=== PATIENT | male | born 1960 | race African-American/Black ===

== ENCOUNTER 2020-01-11 17:45 | Inpatient (IN) | payer MEDICARE, OTHER ==
[~2020-01-11 17:45] MED LIST: Iopamidol-370 76% 500 ML 1 ML ONE
[2020-01-11 18:43] LABS: #Eosinphils 0.4 thou/uL (0.0-0.7); #Lymphocytes 0.9 thou/uL (1.20-3.40); #Monocytes 0.6 thou/uL (0.11-0.59); #Neutrophils 8.3 thou/uL (1.40-6.50); %Basophils 0.1 % (0.0-1.0); %Eosinophils 4.3 % (0.0-10.0); %Lymphocytes 8.9 % (21.0-51.0); %Neutrophils 80.6 % (42.0-75.0); Hemoglobin 6.8 g/dL (14.0-18.0); Mean Corpuscular HGB CONC 33.4 g/dL (32.0-36.0); Mean Corpuscular Hemoglobin 31.6 pg (27.0-31.0); Mean Corpuscular Volume 94.4 fL (78.0-98.0); Mean Platelet Volume 6.9 fL (7.4-10.4); Platelet Count 372 thou/uL (130-400); RBC Distribution Width 14.3 % (11.5-14.5); Red Blood Cell (RBC) Count 2.16 mill/uL (4.70-6.10); White Blood Cell (WBC) Count 10.3 thou/uL (4.8-10.8)
[2020-01-11 19:02] LABS: ALT (SGPT) 26 U/L (8-55); AST (SGOT) 21 U/L (5-34); Albumin 3.2 g/dL (3.4-4.8); Alkaline Phosphatase 63 U/L (40-110); Anion Gap 20 mmol/L (10-20); BUN (Urea Nitrogen) 85 mg/dL (8.4-25.7); Bilirubin, Total 0.3 mg/dL (0.2-1.2); CK (CPK) 152 U/L (30-200); Calc. Creatinine Clearance 0 mL/min (70-130); Calcium 9.1 mg/dL (7.8-10.44); Carbon Dioxide 16 mmol/L (23-31); Chloride 106 mmol/L (98-107); Estimated GFR-MDRD 5; Globulin 2.9 g/dL (2.4-3.5); Glucose 72 mg/dL (80-115); Potassium 5.4 mmol/L (3.5-5.1); Protein, Total 6.1 g/dL (5.8-8.1); Sodium 137 mmol/L (136-145)
[2020-01-11 19:31] LABS: Bacteria/HPF None Seen HPF (None Seen); Bilirubin Negative (Negative); Blood, Urine Trace (Negative); Clarity Clear (Clear); Glucose, Urine (Dipstick) Normal (Negative); Ketone, Urine Negative (Negative); Leukocyte Negative Leu/uL (Negative); Nitrite Negative (Negative); Protein, Urine (Dipstick) 30 mg/dL (Neg-Trace); RBC/HPF None Seen HPF (0-3); Squamous Epithelial None Seen HPF (0-3); Urobilinogen Normal mg/dL (Less than 2); WBC/HPF 0-3 HPF (0-3); pH, Urine 6.5 (5.0-9.0)
--- NOTE | 2020-01-11 19:48 | CT ---
EXAM: CT ABDOMEN AND PELVIS HISTORY: Abdominal pain COMPARISON: 04/14/2019, 09/15/2018 Procedure: Multiple contiguous axial images were obtained and a CT of the abdomen and pelvis with IV contrast. C oronal reformats were performed. FINDINGS: Lower Chest: Chronic changes of the lung parenchyma Vessels: Atherosclerosis of the aorta is noted. There is an endovascular stent for abdominal aortic a neurysm and bilateral common iliac artery repair. The possibility of a leak cannot be excluded given the lack of a noncontrast sequence. There does appear to be a subtle blush of contrast in the e xcluded lumen suggesting a possible type II endoleak. Linear density is noted on axial images 3 through 55, series 2. The maximum dimension of the infrarenal abdominal aorta is 3.4 x 3.3 cm. Previo usly, the aorta measured 3.2 x 3.2 cm. No significant periaortic fat stranding. Heart: Coronary calcifications. No cardiomegaly. Abdomen: Portal vein:Patent Gallbladder: No calcified gallstones. Normal caliber wall. Liver: within normal limits. Pancreas: within normal limits. Spleen: within normal limits. Adrenals: within normal limits. Kidneys: Stable subcentimeter hypodensities in the left and right renal cortex. Bilaterally no obstru ctive uropathy. Peritoneum: There are small pockets of free air within the upper abdomen. There is perihepatic and pe risplenic region. There is a dialysis catheter terminating in the lower midline pelvis. Bowel: Limited evaluation due to the lack of oral contrast administration. No evidence of bowel obstr uction. Ileocecal junction is unremarkable. Normal caliber appendix. Scattered fecal material in a nondistended, nondilated colon. Mesentery and Retroperitoneum: No enlarged mesenteric or retroperitoneal lymph nodes. Abdominal Wall: within normal limits. Pelvis: Reproductive Organs: Reproductive organs are unremarkable. Pelvis: Small amount of free fluid in the pelvis. No mass, lymphadenopathy or free air. Bladder: within normal limits. Bones: within normal limits. IMPRESSION: 1. Redemonstration of a endovascular stent infrarenal abdominal aorta with limbs extending into the l eft and right common iliac artery. Evaluation for endoleak is limited by the lack of noncontrast images. There may be a type II endoleak present. Nonemergent cardiovascular surgical consultation is recommended. 2. Perihepatic, perisplenic fluid as well as small pockets of air in the peritoneum are presumed to b e iatrogenic and due to peritoneal dialysis. No obvious alimentary canal mucosal abnormality. No evidence of bowel obstruction. Normal caliber appendix. Transcribed Date/Time: 01/11/2020 7:57 PM
[2020-01-11] MEDS ORDERED: Ondansetron PF 4 MG/2 ML Vial IVP PRN (22:25)
[2020-01-11] MEDS ORDERED: Ondansetron ODT 4 MG TAB SL PRN (22:25)
[2020-01-11 22:36] VITALS: BMI 27.1
[2020-01-12] MEDS ORDERED: hydrALAZINE 20 MG/ML VIAL SLOW IVP PRN (00:24)
[2020-01-12] MEDS ORDERED: Dextrose 5% in Water 1,000 ML IV PRN (00:24)
[2020-01-12] MEDS ORDERED: Ondansetron ODT 4 MG TAB PO PRN (00:24)
[2020-01-12] MEDS ORDERED: Acetaminophen 500 MG TAB PO PRN (00:24)
[2020-01-12] MEDS ORDERED: PROVENTIL INHALER 6.7 G (200 INHALATIONS) INH PRN (00:24)
[2020-01-12] MEDS ORDERED: Labetalol HCl 100 MG/20 ML VIAL SLOW IVP PRN (00:24)
[2020-01-12] MEDS ORDERED: HumaLOG 300 UNITS/3 ML VIAL SC PRN ×2 (00:24)
[2020-01-12] MEDS ORDERED: Ondansetron PF 4 MG/2 ML Vial IVP PRN (00:24)
[2020-01-12] MEDS ORDERED: Loperamide HCl 2 MG CAP PO PRN ×2 (00:24)
[2020-01-12] MEDS ORDERED: Metoprolol Tartrate 25 MG TAB PO SCH (00:45)
--- NOTE | 2020-01-12 03:13 | HP ---
PRIMARY CARE PROVIDER: [facility], [place], [place]. PRIMARY SOLE SKIVER: Dr. Harvinder Ayala. CHIEF COMPLAINT: Abdominal pain with diarrhea. HISTORY OF PRESENT ILLNESS: This is a 59-year-old male with a significant history of end-stage renal disease on peritoneal dialysis, complaining of lower abdominal pain over the last 4 days with associated loose stool up to 2-3 times per day. The patient denied any fever, chills, emesis or blood in the stool. The patient states he was unable to complete peritoneal dialysis in the last 24 hours due to a malfunctioning peritoneal dialysis catheter. The patient apparently was going to attempt dialysis at his dialysis center, however, was unsuccessful in getting this coordinated. The patient apparently was evaluated at the dialysis center, but referred to the emergency room after concern for potential infection or worsening abdominal distention. The patient does associate with the lower abdominal pain, dysuria, frequency, and hesitancy. In the emergency room, the patient underwent general evaluation including urinalysis, which was essentially unremarkable. The patient underwent CT imaging of the abdomen and pelvis showing no acute intraabdominal process. The patient's potassium was 5.4, however, hemoglobin was noted at 6.8. The patient with a history of previous duodenitis and GI bleed requiring 1 unit of packed red blood cells and Protonix in October of 2019. The patient underwent the EGD evaluation confirming the duodenitis. In the emergency room, the patient was typed and crossed for 2 units of packed red blood cells with 1 unit currently infusing. PAST MEDICAL HISTORY: 1. GI bleed secondarily to duodenitis. 2. End-stage renal disease with peritoneal dialysis. 3. Atrial fibrillation without anticoagulation. 4. Diabetes mellitus type 2. 5. Hyperlipidemia. 6. Hypertension. 7. Gout. 8. Abdominal aortic aneurysm status post repair. PAST SURGICAL HISTORY: 1. Status post cardiac pacemaker placement. 2. Status post abdominal aortic aneurysm with graft and repair. 3. Status post peritoneal dialysis catheter placement. 4. Status post EGD due to gastrointestinal bleed, positive for duodenitis. CURRENT MEDICATIONS: 1. Allopurinol 150 mg p.o. daily. 2. Calcitriol 1 mcg p.o. daily. 3. Cinacalcet 90 mg p.o. daily. 4. Fosrenol 1000 mg p.o. daily. 5. Metoprolol tartrate 25 mg p.o. b.i.d. 6. Renvela 3200 mg p.o. t.i.d. with meals. 7. Procrit 42692 units subcutaneously q.7 days. 8. Folic acid 1 mg p.o. daily. 9. Glipizide 2.5 mg p.o. b.i.d. 10. Protonix 40 mg p.o. b.i.d. ALLERGIES: LISINOPRIL. FAMILY HISTORY: Positive for hypertension and diabetes mellitus. SOCIAL HISTORY: and resides in [place], [place]. Disabled. Former drug user including cocaine and marijuana. None currently. Smokes up to half a pack of cigarettes daily. No alcohol use. REVIEW OF SYSTEMS: CONSTITUTIONAL: Negative for weight loss or gain, ability to conduct usual activities. SKIN: Negative for rash, itching. EYES: Negative for double vision, pain. ENT/MOUTH: Negative for nose bleeding, neck stiffness, pain, tenderness. CARDIOVASCULAR: Negative for palpitations, dyspnea on exertion, orthopnea. RESPIRATORY: Negative for shortness of breath, wheezing, cough, hemoptysis, fever or night sweats. GASTROINTESTINAL: Negative for poor appetite, abdominal pain, heartburn, nausea, vomiting, constipation, or diarrhea. GENITOURINARY: Negative for urgency, frequency, dysuria, nocturia. MUSCULOSKELETAL: Negative for pain, swelling. NEUROLOGIC/PSYCHIATRIC: Negative for anxiety, depression. ALLERGY/IMMUNOLOGIC: Negative for skin rash, bleeding tendency. Otherwise negative except as stated per HPI. PHYSICAL EXAMINATION: VITAL SIGNS: On admission, blood pressure 133/78, pulse 111, respiratory rate 20, temperature 98.9 degrees, Fahrenheit O2 saturation 100% on room air. GENERAL APPEARANCE: This is a 59-year-old male, alert and oriented x3, pleasant, responsive, in no acute distress. HEENT: Pupils are equal, round, reactive to light and accommodation. Extraocular muscles are intact. No scleral icterus. No conjunctival injection. Nares patent, OP is clear. Teeth in good repair. NECK: Supple. No cervical adenopathy. No thyromegaly. No carotid bruits. No JVD appreciated. Cervical spine with full active and passive range of motion. No meningeal signs noted. CHEST: Lungs are clear to auscultation bilaterally. CARDIOVASCULAR EXAM: S1, S2 with tachycardia. No murmur, rub, or gallop appreciated. ABDOMEN: Rounded, soft, nontender, nondistended. Bowel sounds are positive in all 4 quadrants. Peritoneal dialysis catheter in place. EXTREMITIES: Warm and dry with fair turgor. No clubbing, cyanosis, or asymmetric edema appreciated. Pulses palpable distally at the dorsalis pedis, posterior tibial, and popliteal arteries bilaterally. Capillary refill less than 2 seconds. NEUROLOGIC: Cranial nerves 2 through 12 are grossly intact. No focal or lateralizing signs appreciated. PERTINENT LAB AND X-RAY FINDINGS: Sodium 137, potassium 5.4, chloride 106, CO2 of 16, BUN 85, creatinine 11.44, estimated GFR 5, glucose 72, lactic acid level 0.8, calcium 9.1. CBC showed a white blood cell count of 10.3, hemoglobin 6.8, hematocrit 20.4, platelet count 372 with 81% neutrophils. Urinalysis positive for protein and trace blood. CT of the abdomen and pelvis dated 01/11/2020, showed no acute intraabdominal process. Chronic changes noted including endovascular stent in the infrarenal abdominal aorta. Changes consistent with peritoneal dialysis catheter. EKG dated 01/11/2020, by my interpretation shows sinus tachycardia with heart rates in the low 100 to 110s. Normal R-wave progression noted in the precordial leads. Normal axis. No acute ST-T wave changes appreciated. ASSESSMENT/PLAN: 1. Peritoneal dialysis catheter dysfunction. The patient will be observed on the telemetry unit. We will consult Nephrology Service in the a.m. for any further recommendations and consideration for surgical evaluation. 2. [id number] anemia secondary to end-stage renal disease. Type and cross for 2 units of packed red blood cells and transfuse when available. Serial H and H monitoring. Check stool guaiac x1. 3. History of prior duodenitis. 4. End-stage renal disease on peritoneal dialysis. Malfunctioning peritoneal dialysis catheter as stated previously. Consult Nephrology Service for evaluation. 5. Hyperkalemia. Mild elevation in potassium level. Serial potassium monitoring. Likely will benefit from dialysis. 6. Hypertension. Resume home blood pressure regimen and monitor serial blood pressures and monitor clinical response. 7. Prophylaxis. Sequential compression devices while in bed. Protonix 40 mg p.o. daily. CODE STATUS: Full. Surrogate medical decision maker is the patient's spouse. Job ID: [id number]
[2020-01-12] MEDS ORDERED: glipiZIDE 5 MG TAB PO SCH (08:00)
[2020-01-12 08:37] LABS: #Eosinphils 0.5 thou/uL (0.0-0.7); #Lymphocytes 0.9 thou/uL (1.20-3.40); #Monocytes 0.6 thou/uL (0.11-0.59); #Neutrophils 9.4 thou/uL (1.40-6.50); %Basophils 0.2 % (0.0-1.0); %Eosinophils 4.2 % (0.0-10.0); %Monocytes 5.6 % (0.0-10.0); Hemoglobin 8.6 g/dL (14.0-18.0); Mean Corpuscular HGB CONC 34.1 g/dL (32.0-36.0); Mean Corpuscular Hemoglobin 31.9 pg (27.0-31.0); Mean Corpuscular Volume 93.4 fL (78.0-98.0); Mean Platelet Volume 6.7 fL (7.4-10.4); Platelet Count 314 thou/uL (130-400); RBC Distribution Width 14.2 % (11.5-14.5); Red Blood Cell (RBC) Count 2.68 mill/uL (4.70-6.10); White Blood Cell (WBC) Count 11.4 thou/uL (4.8-10.8)
[2020-01-12 08:57] LABS: Anion Gap 21 mmol/L (10-20); BUN (Urea Nitrogen) 88 mg/dL (8.4-25.7); Calc. Creatinine Clearance 9 mL/min (70-130); Calcium 9.2 mg/dL (7.8-10.44); Carbon Dioxide 14 mmol/L (23-31); Chloride 107 mmol/L (98-107); Estimated GFR-MDRD 6; Glucose 97 mg/dL (80-115); Potassium 6.1 mmol/L (3.5-5.1); Sodium 136 mmol/L (136-145)
[2020-01-12] MEDS: Cholecalciferol 1,000 UNITS (25 MCG) TAB PO SCH (08:57)
[2020-01-12] MEDS: Allopurinol 300 MG TAB PO SCH (08:57)
[2020-01-12] MEDS: Sevelamer Carbonate 800 MG TAB PO SCH ×4 (08:57→20:09)
[2020-01-12] MEDS: Metoprolol Tartrate 25 MG TAB PO SCH ×2 (08:57→20:57)
[2020-01-12] MEDS ORDERED: Activase 2 MG VIAL CATH SCH ×3 (09:00→19:15)
[2020-01-12] MEDS ORDERED: Epoetin (ESRD) 20,000 UNITS/ML SC SCH (09:00)
[2020-01-12] MEDS ORDERED: EPOETIN ALFA-EPBX (ESRD) 10,000 UNIT/ML VIAL SC SCH (10:00)
--- NOTE | 2020-01-12 10:12 | PRG ---
DATE OF SERVICE: SUBJECTIVE: Mr. Garcia is a 59-year-old black male with ESRD, currently on CCPD. He was admitted due to his anemia. He was given 2 units of packed RBC. He was noted initially to have a hemoglobin 6.8 and is now much improved. He has an outpatient appointment with Dr. Osmany Mancilla, his GI doctor next week. In addition, a CAT scan of the abdomen and pelvis was done due to a ? of abdominal pain. No acute intraabdominal abnormality was noted except for a ? of possible endoleak from his endovascular stent. This morning, his abdomen is benign. No complaints of abdominal pain. No chest pain or shortness of breath. The PD catheter may also not be appropriately working. For this reason, we will apply Activase for 2 hours and attempt to do a quick exchange to determine patency of this PD catheter. OBJECTIVE: VITAL SIGNS: Blood pressure is 149/76, heart rate 87, respiratory rate 18, temperature 98.4, O2 saturation 97% on room air. GENERAL: The patient is awake sitting comfortable, not in overt distress. SKIN: Adequate turgor. HEENT: Pinkish conjunctivae. Anicteric sclerae. No neck mass. No carotid bruits. No JVD. CHEST: No deformities. LUNGS: Clear breath sounds. No wheezing. No crackles. HEART: Normal sinus rhythm. 2/6 systolic murmur. No gallops. No rubs. ABDOMEN: Globular, soft, nontender. No masses. Positive for PD catheter. EXTREMITIES: No edema. No deformities. MEDICATIONS: January 12, 2020, were reviewed. LABORATORY DATA: January 12, 2020; white count 11.4, hemoglobin 8.6. January 11, 2020; hemoglobin was 6.8. January 12, 2020; sodium 136, potassium 6.1, chloride 107, carbon dioxide 14, BUN 88, creatinine 11.16, calcium 9.2. ASSESSMENT AND PLAN: 1. Mild hyperkalemia. We will simply observe. Continue renal diet. We will do a quick exchange once the PD catheter is more patent. We will do a 1 L infusion and then we will drain him. We will restart him earlier for his PD. 2. Anemia, status post blood transfusion. Epogen was started. 3. Patient also has an appointment with the GI doctor for possible endoscopy next week. 4. End-stage renal disease. We will continue current continuous cycling peritoneal dialysis regimen. We will do the dialysis earlier due to the mild hyperkalemia/potassium 6.1. 5. We will recheck basic metabolic and CBC in a.m. Job ID: [id number] [id number]
[2020-01-12] MEDS: Fluticasone Propionate Nasal Spray 16 gm Bottle NASAL SCH (13:15)
[2020-01-12] MEDS: Dextrose 50% Abboject 50 ML SYRINGE SLOW IVP PRN ×2 (13:17→19:20)
[2020-01-12 14:48] LABS: Glucose 38 mg/dL (80-115)
[2020-01-12] MEDS: Sodium Bicarbonate 150 MEQ in Dextrose 5% in Water 1,000 ML IV SCH (15:00)
[2020-01-12] MEDS ORDERED: Sodium Bicarbonate 150 MEQ in Dextrose 5% in Water 1,000 ML IV SCH (15:00)
[2020-01-12] MEDS: Cinacalcet HCl 30 MG TAB PO SCH (16:48)
[2020-01-12] MEDS ORDERED: CEFAZOLIN 2 GM in Premix Bag 1 BAG IVPB SCH (18:00)
[2020-01-12] MEDS ORDERED: Sterile Water 10 ML VIAL IVP SCH (19:13)
[2020-01-12] MEDS: Morphine 2 MG/ML VIAL SLOW IVP PRN (22:38)
[2020-01-13] MEDS: Sodium Bicarbonate 150 MEQ in Dextrose 5% in Water 1,000 ML IV SCH (06:00)
[2020-01-13] MEDS: Morphine 2 MG/ML VIAL SLOW IVP PRN ×3 (06:00→22:49)
[2020-01-13 07:16] LABS: SARS-CoV-2 NAA Rapid Test Not Detected (NotDetected)
[2020-01-13 07:40] LABS: #Eosinphils 0.4 thou/uL (0.0-0.7); #Lymphocytes 0.8 thou/uL (1.20-3.40); #Monocytes 0.7 thou/uL (0.11-0.59); #Neutrophils 9.4 thou/uL (1.40-6.50); %Basophils 0.3 % (0.0-1.0); %Eosinophils 3.4 % (0.0-10.0); %Lymphocytes 7.4 % (21.0-51.0); %Monocytes 6.4 % (0.0-10.0); %Neutrophils 82.6 % (42.0-75.0); Hemoglobin 8.4 g/dL (14.0-18.0); Mean Corpuscular HGB CONC 32.7 g/dL (32.0-36.0); Mean Corpuscular Hemoglobin 30.9 pg (27.0-31.0); Mean Corpuscular Volume 94.5 fL (78.0-98.0); Mean Platelet Volume 6.8 fL (7.4-10.4); Platelet Count 346 thou/uL (130-400); RBC Distribution Width 14.4 % (11.5-14.5); Red Blood Cell (RBC) Count 2.71 mill/uL (4.70-6.10); White Blood Cell (WBC) Count 11.4 thou/uL (4.8-10.8)
[2020-01-13 07:53] LABS: Anion Gap 21 mmol/L (10-20); BUN (Urea Nitrogen) 86 mg/dL (8.4-25.7); Calc. Creatinine Clearance 9 mL/min (70-130); Calcium 8.3 mg/dL (7.8-10.44); Carbon Dioxide 15 mmol/L (23-31); Chloride 104 mmol/L (98-107); Estimated GFR-MDRD 6; Glucose 81 mg/dL (80-115); Sodium 135 mmol/L (136-145)
[2020-01-13] MEDS: Sevelamer Carbonate 800 MG TAB PO SCH ×3 (08:26→16:59)
[2020-01-13] MEDS: Fluticasone Propionate Nasal Spray 16 gm Bottle NASAL SCH (08:26)
[2020-01-13] MEDS: Cholecalciferol 1,000 UNITS (25 MCG) TAB PO SCH (08:27)
[2020-01-13] MEDS: Metoprolol Tartrate 25 MG TAB PO SCH ×2 (08:27→21:01)
[2020-01-13] MEDS: Allopurinol 300 MG TAB PO SCH (08:27)
[2020-01-13] MEDS ORDERED: Esmolol 100 MG/10 ML VIAL ONE (09:20)
[2020-01-13] MEDS ORDERED: PHENYLEPHRINE-NS 100 MCG/ML 10 ML SYRINGE ONE (09:20)
[2020-01-13] MEDS ORDERED: Rocuronium Bromide 10 MG/ML (10ML VIAL) ONE (09:20)
[2020-01-13] MEDS ORDERED: Ondansetron PF 4 MG/2 ML Vial ONE (09:20)
[2020-01-13] MEDS ORDERED: PROPOFOL 200 MG/20 ML VIAL ONE (09:20)
[2020-01-13] MEDS ORDERED: Lidocaine 1% PF 5 ML VIAL ONE (09:20)
[2020-01-13] MEDS ORDERED: Glycopyrrolate 0.2 MG/ML 5 ML SYRINGE ONE (09:20)
--- NOTE | 2020-01-13 09:35 | PRG ---
DATE OF SERVICE: 01/13/2020 SUBJECTIVE: Mr. Garcia is a 59-year-old black male with ESRD, was admitted for symptomatic anemia. He also was found to have a dysfunctional PD catheter. Attempt to place Activase with the PD catheter did not result in improved function. In addition, reinstitution of Activase was done and the patient is still complaining of some abdominal pain with infusion of the said medicine. He will have his PD catheter evaluated by the surgeon. He is undergoing possible PD catheter replacement. We have also requested for a cuffed hemodialysis catheter placement, where we can put him on backup hemo for the moment. No complaints of shortness of breath or chest pain. OBJECTIVE: VITAL SIGNS: Blood pressure 126/62, heart rate 87, respiratory rate 16, temperature 98.5, and O2 saturation 98%. GENERAL: The patient is awake, alert, comfortable, not in overt distress. SKIN: Adequate turgor. HEENT: Slightly pale conjunctivae. Anicteric sclerae. No neck mass. No carotid bruits. No JVD. CHEST: No deformities. LUNGS: Clear breath sounds. HEART: Normal sinus rhythm. 2/6 systolic murmurs. No gallops. No rubs. ABDOMEN: Globular, soft, and nontender. Positive for PD catheter. EXTREMITIES: No edema. MEDICATIONS: Medications of January 13, 2020, were reviewed. LABORATORY DATA: Laboratories of January 13, 2020: White count 11.4, hemoglobin 8.4. Sodium 135, potassium 5, chloride 104, carbon dioxide 15, BUN 86, creatinine 11.24, and calcium 8.3. ASSESSMENT AND PLAN: 1. End-stage renal disease - for possible replacement of the PD catheter and placement of a backup cuffed-hemodialysis catheter. We will initiate hemodialysis after the said surgery this morning. 2. Mild hyperkalemia - improved. Most recent potassium is now 5. 3. Anemia. The patient received 2 units of packed RBC yesterday. He has an appointment with his GI next week for a possible colonoscopy. We are continue weekly Epogen at 10,000 units subcu every week. We will recheck basic metabolic panel and CBC in a.m. Job ID: [id number] [facility]TD[facility]
[2020-01-13] MEDS ORDERED: Fentanyl 100 MCG/2 ML VIAL ONE (10:06)
[2020-01-13] MEDS ORDERED: Phenylephrine 10 MG/ML VIAL ONE (10:06)
[2020-01-13] MEDS ORDERED: Bupivacaine 0.25% HCL 30 ML VIAL ONE (10:27)
[2020-01-13] MEDS ORDERED: Lidocaine 1% w/Epinephrine 1:100K 20 ML VIAL ONE (10:27)
[2020-01-13] MEDS ORDERED: Heparin 10,000 UNITS/ 10 ML VIAL ONE (10:27)
[2020-01-13] MEDS ORDERED: Sodium Chloride 0.9% 30 ML ONE (10:27)
--- NOTE | 2020-01-13 11:03 | CON ---
DATE OF CONSULTATION: 01/13/2020 REASON FOR CONSULT: Nonfunctional peritoneal dialysis catheter. HISTORY OF PRESENT ILLNESS: Mr. Garcia is a 59-year-old gentleman, who has a peritoneal dialysis catheter in place. This was working well up until the weekend when he started having trouble getting it to drain and became progressively worse and eventually he was unable to get the catheter to drain at all. He went to the clinic, but they were unable to get it to work, so he was sent to the hospital. He was having worsening abdominal pain and distention, which he thinks is due to the dialysate not draining. He denies any fevers or chills. He has had some loose stools, but only a couple of times a day and no blood in that. He was found to be significantly anemic when he was admitted and has been dialyzed. He has a history of multiple upper GI bleeds in the past. PAST MEDICAL HISTORY: 1. Diabetes, type 2. 2. Hypertension. 3. End-stage renal disease, presumably due to the above. 4. Atrial fibrillation without anticoagulation due to history of GI bleed. 5. Multiple GI bleeds due to duodenitis, ulcer disease, and esophageal tears. 6. Hyperlipidemia. 7. Gout. 8. Abdominal aortic aneurysm, status post endovascular repair. PAST SURGICAL HISTORY: 1. Cardiac pacemaker on the left, now on the right with removal of the left pacemaker. 2. Endo-stent repair of aortic aneurysm with possible type [address] 3. Peritoneal dialysis catheter placement. 4. Multiple scopes for GI bleeds. OUTPATIENT MEDICATIONS: Include; 1. Allopurinol. 2. Calcitriol. 3. Cinacalcet. 4. Fosrenol. 5. Metoprolol. 6. Renvela. 7. Procrit. 8. Folate. 9. Glipizide. 10. Protonix. ALLERGIES: HE REPORTS ADVERSE DRUG REACTION TO LISINOPRIL. FAMILY HISTORY: Hypertension and diabetes. SOCIAL HISTORY: He does continue to smoke, but does not use any drugs or alcohol. He does have a history of former use of cocaine and marijuana. 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 REVIEW OF SYSTEMS: Ten system review of systems is negative except per HPI. He specifically denies any respiratory symptoms or any hematemesis or coffee-ground emesis or any melena. PHYSICAL EXAMINATION: VITAL SIGNS: The patient is afebrile. Heart rate 87, respirations 16, 98% saturated on room air, and blood pressure 126/62. GENERAL: Reveals a healthy-appearing man, in no acute distress. He is not flushed or jaundiced in appearance. He is not in any obvious distress. HEENT: Unremarkable. NECK: Supple without lymphadenopathy or thyroid nodules. HEART: Regular in its rate and rhythm with a pansystolic murmur heard over the entire precordium. No rubs or gallops are appreciated. LUNGS: Clear to auscultation bilaterally. ABDOMEN: Soft, slightly distended and with mild tenderness to palpation diffusely, but no rigidity, rebound, or guarding. Peritoneal dialysis catheter site is clean. Laparoscopic incisions are well healed. No palpable masses or hernias. EXTREMITIES: Warm, but I do not appreciate pedal pulses. No significant edema. NEUROLOGIC: No focal deficits. PSYCHIATRIC: Alert, oriented, and appropriate with normal affect. LABORATORY DATA: Hemoglobin has come up to 8.4 after transfusion, it was 6.8 on admission. White count is 11.4, platelets 346. Potassium has come down to 5, it was 6.1 yesterday. BUN and creatinine are chronically elevated at 86 and 11.24, glucose is 85, bicarb is 15. He is COVID negative. UA showed trace blood and [address] images do not show any acute process. There is a large amount of free fluid and some free air in the belly, presumably due to peritoneal dialysis. ASSESSMENT: Nonfunctioning peritoneal dialysis catheter, cause is unclear. It appears to be in good position on CT. We are going to try to revise this laparoscopically and replace it if we are unable to get it functioning. However, he will not be able to do peritoneal dialysis for a while until he heals, so a tunneled hemodialysis catheter has also been requested for immediate dialysis. The procedure and their inherent risks were discussed with the patient. He understands and accepts these risks, which include, but are not limited to, bleeding, infection, risks of anesthesia, hemothorax, pneumothorax, damage to internal organs including bowel and blood vessels, and need for further procedures. All of his questions were answered, and antibiotics have been ordered on-call to OR. Job ID: [id number]
[2020-01-13] MEDS ORDERED: Ondansetron HCl/PF 4 MG/2 ML Vial IVP PRN (12:09)
[2020-01-13] MEDS ORDERED: Promethazine HCl 25 MG/ML VIAL SLOW IVP PRN (12:09)
[2020-01-13] MEDS ORDERED: Promethazine HCl 25 MG/ML VIAL IM PRN (12:09)
--- NOTE | 2020-01-13 13:46 | RAD ---
PORTABLE CHEST ONE VIEW: 01/13/20 at 1:07 p.m. HISTORY: Hemodialysis catheter replacement. COMPARISON: 06/18/19. FINDINGS/IMPRESSION: The heart size is normal. The aorta is tortuous. There is a right sided pacemaker device. Interval pl acement of a left sided internal jugular hemodialysis catheter has been placed with tip in the proje ction of the right atrium. No lobar consolidation, pneumothoraces, carito pulmonary edema or large eff usions are seen. POS: OFF
[2020-01-13 15:19] LABS: Hep B Surf Ag Non-Reactive S/CO (NonReactive)
--- NOTE | 2020-01-13 16:55 | PDOC.HOSPP ---
- Subjective Encounter Date: 01/13/20 Encounter Time: 16:52 Subjective: No overnight events. Pt went for PD catheter laproscopic adjustment. Tunneled catheter placed. Pt endorses mild abdominal pain near catheter site. Denies chest pain, SOB. Denies numbness/paraesthesias. Chart and medications reviewed. - Objective Vital Signs & Weight: Vital Signs (12 hours) Temp Pulse Resp BP Pulse Ox 01/13/20 16:33 97.6 F 88 16 184/91 H 99 01/13/20 13:30 96.9 F L 80 18 162/77 H 96 01/13/20 07:57 98.5 F 87 16 126/62 98 Weight Admit Weight 200 lb 9.6 oz Weight 200 lb 9.6 oz I&O: 01/12/20 01/13/20 01/14/20 06:59 06:59 06:59 Intake Total 1180 2837 282 Output Total 1275 1629 275 Balance -95 1208 7 Result Diagrams: 01/13/20 07:18 01/13/20 07:18 Additional Labs: Accuchecks 01/13/20 01/13/20 01/12/20 10:07 05:39 20:38 POC Glucose 85 96 79 01/12/20 18:32 POC Glucose 54 L* Radiology Reviewed by me: Yes (Chest x-rayno pneumothorx) EKG Reviewed by me: Yes (Sinus rhythm on telemetry) Hospitalist ROS - Review of Systems Constitutional: denies: fever Eyes: denies: vision change ENT: denies: nose congestion, throat pain Respiratory: denies: cough, dry, shortness of breath, hemoptysis, SOB with excertion, pleuritic pain, sputum, wheezing, other Cardiovascular: denies: chest pain, palpitations, orthopnea, paroxysmal noc. dyspnea, edema, light headedness, other Gastrointestinal: reports: abdominal pain (near catheter site). denies: nausea , vomiting, diarrhea, constipation, melena, hematochezia, other Genitourinary: denies: dysuria, frequency, incontinence, hematuria, retention, other Skin: denies: rash, lesions Neurological: denies: weakness - Medication Medications: Active Medications Generic Name Dose Route Start Last Admin Trade Name Freq PRN Reason Stop Dose Admin Acetaminophen 1,000 mg 01/12/20 00:24 01/12/20 06:20 Tylenol PO 1,000 mg Q6H PRN Administration Mild Pain (1-3) Allopurinol 150 mg 01/12/20 09:00 01/13/20 08:27 Zyloprim PO 150 mg DAILY LINH Administration Cholecalciferol 2,000 units 01/12/20 09:00 01/13/20 08:27 Vitamin D3 PO 2,000 units DAILY LINH Administration Cinacalcet 90 mg 01/12/20 17:00 01/12/20 16:48 Sensipar PO 90 mg 1700 LINH Administration Dextrose/Water 25 gm 01/12/20 00:24 01/12/20 19:20 Dextrose 50% SLOW IVP 25 gm PRN PRN Administration Hypoglycemia Epoetin Cristian-epbx 10,000 unit 01/12/20 10:00 01/12/20 13:16 Retacrit SC 10,000 unit Q7D LINH Administration Fluticasone Propionate 0 gm 01/12/20 09:00 01/13/20 08:26 Flonase Nasal [place] NASAL Not Given DAILY [facility] Metoprolol Tartrate 25 mg 01/12/20 09:00 01/13/20 08:27 Lopressor PO 25 mg BID LINH Administration Morphine Sulfate 2 mg 01/12/20 22:23 01/13/20 06:00 Morphine SLOW IVP 2 mg Q4H PRN Administration Severe Pain (7-10) Pantoprazole Sodium 40 mg 01/12/20 09:00 01/13/20 08:27 Protonix PO 40 mg DAILY LINH Administration Sevelamer Carbonate 2,400 mg 01/12/20 08:00 01/13/20 13:50 Renvela PO Not Given TID-WM [facility] - Exam General Appearance: NAD, awake alert Eye: anicteric sclera ENT: normocephalic atraumatic, moist mucosa Neck: supple, symmetric, no JVD, no thyromegaly, no lymphadenopathy, no carotid bruit Heart: RRR, no gallops, no rubs, normal peripheral pulses Heart - other findings: Holosystolic decrescendo murmur Respiratory: CTAB, no wheezes, no rales, no ronchi, normal chest expansion, no tachypnea, normal percussion Gastrointestinal: soft, non-tender, non-distended, normal bowel sounds, no palpable masses, no hepatomegaly, no splenomegaly, no bruit Extremities: no cyanosis, no clubbing, no edema Skin: normal turgor, no lesions, no rashes Neurological: cranial nerve grossly intact, normal sensation to touch, no weakness, no focal deficits, no new deficit Psychiatric: normal affect, normal behavior, A&O x 3 Hosp A/P (1) Anemia Code(s): D64.9 - ANEMIA, UNSPECIFIED Status: Acute (2) ESRD (end stage renal disease) Code(s): N18.6 - END STAGE RENAL DISEASE Status: Acute (3) HTN (hypertension) Code(s): I10 - ESSENTIAL (PRIMARY) HYPERTENSION Status: Acute (4) HLD (hyperlipidemia) Code(s): E78.5 - HYPERLIPIDEMIA, UNSPECIFIED Status: Acute (5) T2DM (type 2 diabetes mellitus) Status: Acute (6) Afib Code(s): I48.91 - UNSPECIFIED ATRIAL FIBRILLATION Status: Acute (7) Peritoneal dialysis catheter dysfunction Code(s): T85.611A - BREAKDOWN OF INTRAPERITONEAL DIALYSIS CATHETER, INIT Status: Acute - Plan Peritoneal dialysis catheter malfunction: Patient presented with abdominal pain and distention and inability to flush peritoneal dialysis catheter. Attempted Cathflo with no success. General surgery consulted who brought the patient on 01/13/2024 catheter revision. At that time tunneled hemodialysis catheter was placed. Plan: -General surgery following -Continue with HD tunneled catheter until PD site healed -Serial abdominal exams Anemia: Hemoglobin on admission 6.8. Patient received 2 units of packed red blood cells with increase in hemoglobin to 8.4. Fecal occult blood positive. Likely combination of anemia of chronic disease and GI bleed. Patient has history of prior GI bleed with duodenitis. Nephrology is started the patient on EPO. Plan: -Continue to monitor H&H -Transfuse as needed -Monitor bowel movements for hematochezia, melena -EPO End-stage renal disease on dialysis: History end-stage renal disease on dialysis followed by Dr. Ayala. HD tunneled catheter placed on 01/13/2020. Will hold on using PD catheter until site is healed. Plan: -Continue Renvela, EPO, vitamin D3 -Daily BMP -Nephrology following recs appreciated Hyperkalemia: Potassium on presentation 6.1. Patient received bicarb. Repeat potassium 5.0. No EKG changes. Plan: -Monitor BMP -Nephrology recs appreciated Atrial fibrillation: History of A. fib not on anticoagulation. Rate controlled. Plan: -Continue home metoprolol 25 mg twice daily Type 2 diabetes mellitus: History of type 2 diabetes mellitus on home glipizide. Patient has been hypoglycemic over the past day. Will hold home glipizide and place on mild ISS. Plan: -Hold home glipizide -Mild ISS -Carbohydrate consistent diet -AC nightly glucose Hypertension: Continue home metoprolol 25 mg twice daily. Full code Case discussed with attending physician, Dr. Blank. Addendum - Physician - Physician Attestation Date/Time: 01/13/201813 I personally performed or re-performed the physical examination and medical decision making. I have verified all PA documentation or findings, including history, physical exam and/or medical decision making. Impression: Peritoneal dialysis catheter malfunction s/p surgical intervention 01/12 End-stage renal diseases/p dialysis catheter placement 01/12 Anemia due to chronic renal disease s/p 2 units PRBC this admission Diabetes mellitus type II with hypoglycemia due to sulfonylureas Paroxysmal atrial fibrillation not a candidate for anticoagulation Hyperkalemia due to missed dialysis Hypertension Peptic ulcer disease with recent EGD Abdominal aortic aneurysm s/p endovascular stent placement Diverticulosis YUNIOR inhibitor ALLERGY (Patient has 2 different medical record numbers) Plan: Will change to inpatient status per [place] recommendation. Patient underwent HemoSplit placement today. Potassium improved. Hypoglycemia improving. Glipizide discontinued.Nephrology and surgical input appreciated. Recheck labs in a.m. Continue metoprolol and PPI. Continue other medications as above.
[2020-01-13] MEDS: Cinacalcet HCl 30 MG TAB PO SCH (16:56)
[2020-01-14 04:37] LABS: #Eosinphils 0.4 thou/uL (0.0-0.7); #Lymphocytes 0.9 thou/uL (1.20-3.40); #Monocytes 0.8 thou/uL (0.11-0.59); #Neutrophils 9.3 thou/uL (1.40-6.50); %Basophils 0.1 % (0.0-1.0); %Eosinophils 3.1 % (0.0-10.0); %Lymphocytes 7.9 % (21.0-51.0); %Monocytes 6.7 % (0.0-10.0); %Neutrophils 82.2 % (42.0-75.0); Hemoglobin 9.6 g/dL (14.0-18.0); Mean Corpuscular HGB CONC 31.7 g/dL (32.0-36.0); Mean Corpuscular Hemoglobin 30.1 pg (27.0-31.0); Mean Corpuscular Volume 95.1 fL (78.0-98.0); Mean Platelet Volume 6.9 fL (7.4-10.4); Platelet Count 378 thou/uL (130-400); RBC Distribution Width 14.4 % (11.5-14.5); Red Blood Cell (RBC) Count 3.19 mill/uL (4.70-6.10); White Blood Cell (WBC) Count 11.4 thou/uL (4.8-10.8)
[2020-01-14 04:52] LABS: Anion Gap 22 mmol/L (10-20); BUN (Urea Nitrogen) 83 mg/dL (8.4-25.7); Calc. Creatinine Clearance 9 mL/min (70-130); Calcium 8.6 mg/dL (7.8-10.44); Carbon Dioxide 15 mmol/L (23-31); Chloride 105 mmol/L (98-107); Estimated GFR-MDRD 5; Glucose 85 mg/dL (80-115); Potassium 5.3 mmol/L (3.5-5.1); Sodium 137 mmol/L (136-145)
[2020-01-14] MEDS ORDERED: Cipro 250 MG TAB PO SCH (09:00)
[2020-01-14] MEDS: Allopurinol 300 MG TAB PO SCH (09:16)
[2020-01-14] MEDS: Sevelamer Carbonate 800 MG TAB PO SCH ×3 (09:16→17:08)
[2020-01-14] MEDS: Cholecalciferol 1,000 UNITS (25 MCG) TAB PO SCH (09:17)
[2020-01-14] MEDS: Fluticasone Propionate Nasal Spray 16 gm Bottle NASAL SCH (09:17)
[2020-01-14] MEDS: Metoprolol Tartrate 25 MG TAB PO SCH ×2 (09:17→20:35)
--- NOTE | 2020-01-14 09:17 | PDOC.HOSPP ---
- Subjective Encounter Date: 01/14/20 Encounter Time: 09:15 Subjective: No overnight events. Pt denies chest pain, SOB, or palpitations. Reports mild abdominal pain when coughing near PD catheter side. Denies numbness or tingling. Pt examined at bedside. Chart and medications reviewed. - Objective Vital Signs & Weight: Vital Signs (12 hours) Temp Pulse Resp BP BP Pulse Ox 01/14/20 07:46 98.6 F 97 20 154/72 H 100 01/14/20 07:40 100 01/14/20 03:25 98.1 F 101 H 18 136/74 96 01/13/20 23:15 95 17 115/58 L Weight Admit Weight 200 lb 9.6 oz Weight 200 lb 9.6 oz I&O: 01/13/20 01/14/20 01/15/20 06:59 06:59 06:59 Intake Total 2837 307 Output Total 1629 725 150 Balance 1208 -418 -150 Result Diagrams: 01/14/20 04:11 01/14/20 04:11 Additional Labs: Accuchecks 01/14/20 01/13/20 01/13/20 06:12 20:43 17:58 POC Glucose 130 H 159 H 87 01/13/20 10:07 POC Glucose 85 EKG Reviewed by me: Yes (Sinus rhythm on telemetry) Hospitalist ROS - Review of Systems Constitutional: denies: fever, chills, sweats, weakness, malaise, other Eyes: denies: vision change ENT: denies: nose congestion, throat pain Respiratory: denies: cough, dry, shortness of breath, hemoptysis, SOB with excertion Cardiovascular: denies: chest pain, palpitations Gastrointestinal: reports: abdominal pain. denies: nausea, vomiting Skin: denies: rash, lesions Neurological: denies: weakness, numbness - Medication Medications: Active Medications Generic Name Dose Route Start Last Admin Trade Name Freq PRN Reason Stop Dose Admin Acetaminophen 1,000 mg 01/12/20 00:24 01/12/20 06:20 Tylenol PO 1,000 mg Q6H PRN Administration Mild Pain (1-3) Allopurinol 150 mg 01/12/20 09:00 01/13/20 08:27 Zyloprim PO 150 mg DAILY LINH Administration Cholecalciferol 2,000 units 01/12/20 09:00 01/13/20 08:27 Vitamin D3 PO 2,000 units DAILY LINH Administration Cinacalcet 90 mg 01/12/20 17:00 01/13/20 16:56 Sensipar PO 90 mg 1700 LINH Administration Dextrose/Water 25 gm 01/12/20 00:24 01/12/20 19:20 Dextrose 50% SLOW IVP 25 gm PRN PRN Administration Hypoglycemia Epoetin Cristian-epbx 10,000 unit 01/12/20 10:00 01/12/20 13:16 Retacrit SC 10,000 unit Q7D LINH Administration Fluticasone Propionate 0 gm 01/12/20 09:00 01/13/20 08:26 Flonase Nasal [place] NASAL Not Given DAILY [facility] Hydralazine HCl 10 mg 01/12/20 00:24 01/13/20 17:30 Apresoline SLOW IVP 10 mg Q4H PRN Administration SBP > 180 and HR < 70 Metoprolol Tartrate 25 mg 01/12/20 09:00 01/13/20 21:01 Lopressor PO 25 mg BID LINH Administration Morphine Sulfate 2 mg 01/12/20 22:23 01/13/20 22:49 Morphine SLOW IVP 2 mg Q4H PRN Administration Severe Pain (7-10) Pantoprazole Sodium 40 mg 01/12/20 09:00 01/13/20 08:27 Protonix PO 40 mg DAILY LINH Administration Sevelamer Carbonate 2,400 mg 01/12/20 08:00 01/13/20 16:59 Renvela PO Not Given TID-WM [facility] - Exam General Appearance: NAD, awake alert Eye: anicteric sclera ENT: normocephalic atraumatic, moist mucosa Neck: supple, symmetric, no JVD Heart: RRR, normal peripheral pulses, murmur present Respiratory: CTAB, no wheezes, no rales, no ronchi, normal chest expansion, no tachypnea, normal percussion Gastrointestinal: soft, non-tender, non-distended, normal bowel sounds, no palpable masses, no hepatomegaly, no splenomegaly, no bruit Gastrointestinal - other findings: PD catheter in place Extremities: no cyanosis, no clubbing, no edema Skin: normal turgor, no lesions, no rashes Psychiatric: normal affect, normal behavior, A&O x 3 Hosp A/P (1) Anemia Code(s): D64.9 - ANEMIA, UNSPECIFIED Status: Acute (2) ESRD (end stage renal disease) Code(s): N18.6 - END STAGE RENAL DISEASE Status: Acute (3) HTN (hypertension) Code(s): I10 - ESSENTIAL (PRIMARY) HYPERTENSION Status: Acute (4) HLD (hyperlipidemia) Code(s): E78.5 - HYPERLIPIDEMIA, UNSPECIFIED Status: Acute (5) T2DM (type 2 diabetes mellitus) Status: Acute (6) Afib Code(s): I48.91 - UNSPECIFIED ATRIAL FIBRILLATION Status: Acute (7) Peritoneal dialysis catheter dysfunction Code(s): T85.611A - BREAKDOWN OF INTRAPERITONEAL DIALYSIS CATHETER, INIT Status: Acute - Plan Peritoneal dialysis catheter malfunction: Patient presented with abdominal pain and distention and inability to flush peritoneal dialysis catheter. Attempted Cathflo with no success. General surgery consulted who brought the patient on 01/13/2024 catheter revision. At that time tunneled hemodialysis catheter was placed. Attempting PD this am. Plan: -General surgery following -Nephrology following -Serial abdominal exams Anemia: Hemoglobin on admission 6.8. Patient received 2 units of packed red blood cells with increase in hemoglobin to 8.4. Fecal occult blood positive. Likely combination of anemia of chronic disease and GI bleed. Patient has history of prior GI bleed with duodenitis. Nephrology has started the patient on EPO. Plan: -Continue to monitor H&H -Transfuse as needed -Monitor bowel movements for hematochezia, melena -EPO End-stage renal disease on dialysis: History end-stage renal disease on dialysis followed by Dr. Ayala. HD tunneled catheter placed on 01/13/2020. PD catheter revision on 01/13/2020. Continuing with PD this am. Plan: -Continue Renvela, EPO, vitamin D3 -Daily BMP -Nephrology following recs appreciated Hyperkalemia: Potassium on presentation 6.1. Patient received bicarb. Repeat potassium 5.0. No EKG changes. Plan: -Monitor BMP -Nephrology recs appreciated Atrial fibrillation: History of A. fib not on anticoagulation. Rate controlled. Plan: -Continue home metoprolol 25 mg twice daily Type 2 diabetes mellitus: History of type 2 diabetes mellitus on home glipizide. Patient has been hypoglycemic over the past day. Will hold home glipizide and place on mild ISS. Plan: -Hold home glipizide -Mild ISS -Carbohydrate consistent diet -[facility] glucose Hypertension: Continue home metoprolol 25 mg twice daily. Full code Case discussed with attending physician, Dr. Blank. Addendum - Physician - Physician Attestation Date/Time: 01/14/20 2716 I personally performed or re-performed the physical examination and medical decision making. I have verified all PA documentation or findings, including history, physical exam and/or medical decision making. Peritoneal dialysis catheter malfunction s/p surgical intervention 01/12 End-stage renal diseases/p dialysis catheter placement 01/12 Anemia due to chronic renal disease s/p 2 units PRBC this admission Diabetes mellitus type II with hypoglycemia due to sulfonylureas Paroxysmal atrial fibrillation not a candidate for anticoagulation Hyperkalemia due to missed dialysis Hypertension Peptic ulcer disease with recent EGD Abdominal aortic aneurysm s/p endovascular stent placement Diverticulosis YUNIOR inhibitor ALLERGY (Patient has 2 different medical record numbers) Plan: 01/13 We will continue peritoneal dialysis as tolerated. Patient has been started empirically on Cipro and Flagyl for possible subclinical colitis. Patient will need 1 week of Cipro and Flagyl at discharge per general surgery. Continue sliding scale. Glipizide been discontinued. A.m. labs. Continue metoprolol. Continue other medications as above. Colonoscopy as outpatient.
--- NOTE | 2020-01-14 09:22 | PRG ---
DATE OF SERVICE: 01/14/2020 SUBJECTIVE: Mr. Garcia is a 59-year-old black male with ESRD and currently on peritoneal dialysis. He underwent operative procedure regarding to nonfunctioning PD catheter. Dr. Mclaughlin explored the PD site and felt that the nonfunctioning PD catheter may be related to multiple adhesions. Lysis of adhesion was done. We did peritoneal dialysis with the patient; however, we are having problem with low drain volume. We will try to adjust our PD device to see if we could make it work. If not, we will initiate hemodialysis. He does have a cuffed hemodialysis catheter. No other complaints today. No chest pain or shortness of breath. He was also empirically started on one time dose of cefazolin. We will plan to start him on Cipro 250 b.i.d. due to the finding of a some thickened colon. OBJECTIVE: VITAL SIGNS: Blood pressure is 154/72, heart rate 97, respiratory rate 20, temperature 98.6, and O2 saturation 100% on room air. GENERAL: The patient is awake, alert, and comfortable, not in overt distress. SKIN: Adequate turgor. HEENT: Slightly pale conjunctivae. Anicteric sclerae. NECK: No neck mass. No carotid bruits. No JVD. CHEST: No deformities. LUNGS: Clear breath sounds. HEART: Normal sinus rhythm. No murmurs. No gallops. No rubs. ABDOMEN: Globular, soft, and nontender. No masses. EXTREMITIES: No edema. No deformities. MEDICATIONS: Medications of January 14, 2020, reviewed. LABORATORY DATA: Laboratories of January 14, 2020; white count 11.4, hemoglobin 9.6. Sodium 137, potassium 5.3, chloride 105, carbon dioxide 15, BUN 83, creatinine 11.67, and calcium 8.6. ASSESSMENT AND PLAN: 1. End-stage renal disease-we will again attempt to use peritoneal dialysis tonight and if he is still nonfunctional, we will convert him to hemodialysis and use his cuffed hemodialysis catheter. 2. Anemia, status post blood transfusion. Continuing weekly Epogen with this patient. 3. ? of colitis. Start Cipro 250 p.o. b.i.d. ESRD-as previously mentioned, attempt to use peritoneal dialysis again tonight. If it is not successful, we will do hemodialysis on Saturday. Recheck CBC and basic met. Job ID: [id number]
[2020-01-14] MEDS ORDERED: Heparin 1,000 UNITS/ML (10 ml) 6,000 UNITS in PERITON.DIALYSIS 7-2.5 % DEXTR 6,000 ML FS SCH (11:00)
[2020-01-14] MEDS ORDERED: metroNIDAZOLE 500 MG TAB PO SCH (12:00)
--- NOTE | 2020-01-14 13:10 | PDOC.OP ---
Operative Note - Operative Note Operative Note: DATE OF PROCEDURE: 01/13/2020 PROCEDURE: Placement of tunneled hemodialysis catheter with ultrasound and fluoroscopic guidance, laparoscopic lysis of adhesions. SURGEON: Zachariah Mclaughlin M.D. PREOPERATIVE DIAGNOSIS: Malfunctioning peritoneal dialysis catheter POSTOPERATIVE DIAGNOSIS: Malfunctioning peritoneal dialysis catheter due to pelvic adhesions HISTORY: Patient with renal failure on peritoneal dialysis chronically. This has not been working properly since the weekend and is now not working at all. 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 PROCEDURE: After informed consent was obtained and appropriate preoperative antibiotics were administered, the patient was taken to the Operating Room, placed in the supine position and monitored anesthesia care was administered. The neck and chest were prepped and draped in a standard sterile fashion and the patient placed in Trendelenburg position. The patient has a right subclavian pacemaker so the decision was made to place the dialysis catheter at the left internal jugular position. A sterile ultrasound probe was used to identify the patent compressible left IJ vein which was accessed under direct ultrasound guidance. A wire was threaded through the needle and confirmed by ultrasound to be within the patent compressible vessel with the tip in the vena cava by fluoroscopy. Local anesthesia was infused to the skin and subcutaneous tissues of the left neck and chest. An infraclavicular incision was made and a catheter tunneled from the infraclavicular to the left IJ access site. The left IJ was sequentially dilated over the wire following which a dilator and sheath were placed over the wire and the dilator and wire removed leaving the sheath in place. The catheter was tunneled through the sheath which was then split and removed leaving the catheter in place. This was confirmed by fluoroscopy to be in good position in the superior vena cava with no kinking of the course of the catheter. Both ports easily aspirated dark venous nonpulsatile blood and easily flushed without resistance. Heparin was instilled to the quantity specified on the hub, and the hub was secured to the skin with 3-0 nylon sutures. The skin incision at the neck was closed in two layers with 4-0 Monocryl suture and Dermabond dressings were placed. The skin at the exit site was snugged up around the catheter with 4-0 Monocryl suture and Dermabond was placed there as well. Once the Dermabond was dry, a Biopatch and Tegaderm dressing was placed at the exit site. Attention was then turned to laparoscopic revision of the peritoneal dialysis catheter. The abdomen was sterilely prepped and draped and an attempt made to insufflate through the peritoneal dialysis catheter but the intra-abdominal pressure rapidly prateek to 15 and the abdomen did not insufflate. Some fluid was able to be aspirated from the catheter and this was sent for Gram stain and culture. Local anesthesia was infused at the level of the umbilicus. A transverse skin incision was made and the fascia was elevated. A Veress needle was placed into the abdominal cavity without difficulty and carbon dioxide gas insufflated to an intra-abdominal pressure 15 which the patient tolerated well. The Veress needle was withdrawn and a [place] port advanced under direct laparoscopic vision into the abdominal cavity which was carefully examined. There was no evidence of Veress needle or trocar injury. There were no significant adhesions to the anterior abdominal wall. A 5 mm trocar was placed in the lateral upper abdomen and the patient was placed in Trendelenburg. The small bowel was easily drawn up out of the pelvis and no adhesions seen in this area. The peritoneal dialysis catheter was seen going down into the pelvis between the bladder and the sigmoid colon. As the colon was attempted to be pulled up out of the pelvis was found to be densely adherent to the anterior pelvis. A second port was placed under direct laparoscopic vision to take down these adhesions. A plane was able to be developed between the colon and the pelvic wall and these adhesions were able to be taken down bluntly but they appeared subacute in nature and the tissues were inflamed and somewhat indurated, especially on the colon side, and the colon could not really be mobilized up out of the pelvis. There was no purulence and no evidence of peritonitis. The peritoneal dialysis catheter itself was completely normal in appearance without fibrinous plugging or any abnormality. The catheter was confirmed to flush and drain normally. This was placed back down into the pelvis somewhat medial to its initial location as far away from the adhesions and as deep in the pelvis as possible. Saline was infused and drained easily out of the peritoneal cavity through the cuffed tunneled peritoneal dialysis catheter. The lateral trochars removed and the fascia was bridged with a 0 Vicryl suture on a [place] needle and the sutures secured but not tied down. Carbon dioxide gas was allowed to desufflate through the umbilical trocar which was then removed and the fascia closed at that location under direct vision with a 0 Vicryl suture on a UR 6 needle. The other fascial incisions were then secured. The skin incisions were closed with subcuticular 4-0 Monocryl suture and Dermabond dressings placed. Estimated blood loss was minimal. There were no complications. There were no specimens..
--- NOTE | 2020-01-14 13:11 | PDOC.GSPN ---
Surgery Progress Note: Subj - Subjective Narrative: Patient feels good this morning. Pain is controlled. Incisions look good. He tolerated hemodialysis yesterday and his tunneled hemodialysis catheter is functioning well. I explained that he had adhesions in his pelvis between his colon and his abdominal wall. He is already on Cipro and I have added Flagyl for additional colon coverage in case he had a subclinical colitis that caused these adhesions. I would recommend continuing antibiotics at discharge for about a week, and have his peritoneal dialysis catheter flushed regularly. From a surgical standpoint he is ready for discharge. He can follow-up with me in the clinic in 2 weeks time. Surgery Progress Note: Obj - Vital signs Vital signs: Vital Signs - Most Recent Temp Pulse Resp BP Pulse Ox 98.3 F 98 14 148/77 H 97 01/14/20 11:37 01/14/20 11:37 01/14/20 11:37 01/14/20 11:37 01/14/20 11:37 Surgery Progress Note: Results - Labs Result Diagrams: 01/14/20 04:11 01/14/20 04:11 Lab results: Laboratory Results - last 24 hr 01/14/20 01/14/20 01/14/20 04:11 04:11 06:12 WBC 11.4 H RBC 3.19 L Hgb 9.6 L Hct 30.4 L MCV 95.1 MCH 30.1 MCHC 31.7 L RDW 14.4 Plt Count 378 MPV 6.9 L Neutrophils % 82.2 H Lymphocytes % 7.9 L Monocytes % 6.7 Eosinophils % 3.1 Basophils % 0.1 Neutrophils # 9.3 H Lymphocytes # 0.9 L Monocytes # 0.8 H Eosinophils # 0.4 Basophils # 0.0 Sodium 137 Potassium 5.3 H Chloride 105 Carbon Dioxide 15 L Anion Gap 22 H BUN 83 H Creatinine 11.67 H Estimated GFR (MDRD) 5 Glucose 85 POC Glucose 130 H Calcium 8.6 01/14/20 11:06 WBC RBC Hgb Hct MCV MCH MCHC RDW Plt Count MPV Neutrophils % Lymphocytes % Monocytes % Eosinophils % Basophils % Neutrophils # Lymphocytes # Monocytes # Eosinophils # Basophils # Sodium Potassium Chloride Carbon Dioxide Anion Gap BUN Creatinine Estimated GFR (MDRD) Glucose POC Glucose 104 Calcium
[2020-01-14] MEDS: Cinacalcet HCl 30 MG TAB PO SCH (17:07)
[2020-01-14] MEDS: Cipro 250 MG TAB PO SCH (20:35)
[2020-01-14] MEDS: metroNIDAZOLE 500 MG TAB PO SCH (20:35)
[2020-01-14] MEDS ORDERED: Saccharomyces boulardii 250 MG CAP PO SCH (21:00)
[2020-01-15 04:15] LABS: #Basophils 0.1 thou/uL (0.0-0.2); #Eosinphils 0.4 thou/uL (0.0-0.7); #Lymphocytes 0.8 thou/uL (1.20-3.40); #Monocytes 0.7 thou/uL (0.11-0.59); #Neutrophils 8.5 thou/uL (1.40-6.50); %Basophils 0.7 % (0.0-1.0); %Eosinophils 3.6 % (0.0-10.0); %Lymphocytes 7.5 % (21.0-51.0); %Monocytes 6.8 % (0.0-10.0); %Neutrophils 81.4 % (42.0-75.0); Hemoglobin 8.4 g/dL (14.0-18.0); Mean Corpuscular HGB CONC 33.5 g/dL (32.0-36.0); Mean Corpuscular Hemoglobin 31.3 pg (27.0-31.0); Mean Corpuscular Volume 93.4 fL (78.0-98.0); Mean Platelet Volume 6.6 fL (7.4-10.4); Platelet Count 317 thou/uL (130-400); RBC Distribution Width 14.2 % (11.5-14.5); Red Blood Cell (RBC) Count 2.67 mill/uL (4.70-6.10); White Blood Cell (WBC) Count 10.4 thou/uL (4.8-10.8)
[2020-01-15 04:39] LABS: Anion Gap 17 mmol/L (10-20); BUN (Urea Nitrogen) 74 mg/dL (8.4-25.7); Calc. Creatinine Clearance 9 mL/min (70-130); Calcium 8.2 mg/dL (7.8-10.44); Carbon Dioxide 21 mmol/L (23-31); Chloride 101 mmol/L (98-107); Estimated GFR-MDRD 6; Glucose 95 mg/dL (80-115); Potassium 4.2 mmol/L (3.5-5.1); Sodium 135 mmol/L (136-145)
[2020-01-15] MEDS: Cipro 250 MG TAB PO SCH (05:47)
[2020-01-15] MEDS: Allopurinol 300 MG TAB PO SCH (08:18)
[2020-01-15] MEDS: Sevelamer Carbonate 800 MG TAB PO SCH ×2 (08:18→11:29)
[2020-01-15] MEDS: Metoprolol Tartrate 25 MG TAB PO SCH (08:20)
[2020-01-15] MEDS: metroNIDAZOLE 500 MG TAB PO SCH (08:20)
[2020-01-15] MEDS: Cholecalciferol 1,000 UNITS (25 MCG) TAB PO SCH (08:20)
[2020-01-15] MEDS: Fluticasone Propionate Nasal Spray 16 gm Bottle NASAL SCH (08:21)
--- NOTE | 2020-01-15 09:09 | PRG ---
DATE OF SERVICE: 01/15/2020 SUBJECTIVE: Mr. Garcia is a 59-year-old black male, followed up for his ESRD. He had a problem difficulty doing PD due to problems with the peritoneal dialysis ? catheter. He underwent a surgical intervention where Dr. Mclaughlin noted a lot of adhesions. Lysis of adhesions was done. Last night, we tried the peritoneal dialysis and he did well. He tolerated said treatment. PD was functional. No new complaints today. No chest pain or shortness of breath. OBJECTIVE: VITAL SIGNS: Blood pressure 142/75, heart rate 92, respiratory rate 18, temperature 98.3, and O2 sat 96%. GENERAL: The patient is awake, alert, comfortable, not in distress. SKIN: Adequate turgor. HEENT: Slightly pale conjunctivae. Anicteric sclerae. No neck mass. No carotid bruits. No JVD. CHEST: No deformities. LUNGS: Clear breath sounds. HEART: Normal sinus rhythm. No murmurs, no gallops, no rubs. ABDOMEN: Globular, soft, and nontender. No masses. EXTREMITIES: No edema. MEDICATIONS: Medications of January 15, 2020, reviewed. LABORATORY DATA: January 15, 2020; white count 10.4, hemoglobin 8.4, sodium 135, potassium 4.2, chloride 101, carbon dioxide 21, BUN 74, creatinine 11.23, and calcium 8.2. ASSESSMENT AND PLAN: 1. Anemia, p.r.n. blood transfusion. Continue current Epogen regimen. The patient has GI appointment next week. 2. ? colitis. Started on Cipro 250 b.i.d. 3. End-stage renal disease, doing well, tolerating peritoneal dialysis. He did tolerate the peritoneal dialysis yesterday. It was noted to be functional. We will continue current CCPD regimen. Job ID: [id number]
[2020-01-15 12:17] VITALS: BP 141/68; TEMP 97.7
--- NOTE | 2020-01-15 16:37 | DIS ---
DATE OF ADMISSION: 01/11/2020 DATE OF DISCHARGE: 01/15/2020 DISCHARGE DISPOSITION: Home. FOLLOWUP: 1. Follow up with primary care physician at [facility] in 1 week. 2. Follow up with Dr. Mclaughlin in 1 week. 3. Follow up with Nephrology in 1 week. 4. Follow up with GI Clinic in 1 to 2 weeks due to anemia with blood in stool. ALLERGIES: NO KNOWN DRUG ALLERGIES. DISCHARGE MEDICATION: As same as admission medication. Ciprofloxacin and Flagyl for next 5 days was added per General surgery recommendation. The patient was seen and examined on the day of discharge. Denies any new complaints. No chest pain, shortness of breath, palpitations, fever, or chills reported. The patient underwent peritoneal dialysis last night. BRIEF HOSPITAL COURSE: The patient is a 59-year-old male with end-stage renal disease on peritoneal dialysis, presented to the emergency room with abdominal pain along with diarrhea. He also had peritoneal dialysis catheter malfunction. He was monitored in the telemetry unit due to significant hyperkalemia, potassium of 6.1. General surgery was consulted. On 14 January 2020, the patient underwent laparoscopic lysis of adhesion along with placement of a tunneled hemodialysis catheter. His peritoneal dialysis catheter is working appropriately. Ciprofloxacin and Flagyl were also added per General surgery recommendation due to mild colitis. He will follow up with General Surgery in 2 weeks. The patient was also found to have anemia of 6.8. He received total of 2 units of PRBC. He denies any melena or hematochezia. His hemoccult stool came back positive. He was advised to follow up at the GI Clinic for further testing. His peritoneal fluid culture was negative at 48 hours. He has been cleared by consultants for discharge. FINAL DIAGNOSIS: 1. Abdominal pain with diarrhea probably due to infectious colitis. 2. Peritoneal dialysis catheter malfunction, status post laparoscopic lysis of adhesion as discussed above. 3. Anemia of chronic renal disease status post 2 units PRBC. 4. Hemoccult-positive stool without any carito melena or hematochezia. GI follow up as outpatient was advised. 5. Diabetes mellitus type 2 with hypoglycemia. The patient was advised to hold sulfonylureas for now. His blood sugar dropped up to 39 this admission. 6. Hyperkalemia due to missed dialysis. 7. Paroxysmal atrial fibrillation, not a candidate for anticoagulation. 8. Hypertension. 9. Peptic ulcer disease with recent EGD. 10. Abdominal aortic aneurysm status post endovascular stent placement. 11. Diverticulosis. 12. YUNIOR inhibitor allergy. 13. Please note that the patient has 2 different medical records. 14. The patient understands the above plan of care. Job ID: [id number]
== END 2020-01-15 14:05 | disposition home or self-care (01) | DRG 907 ==
LOC: ERS 17:45 → OBSVTOIN 20:47 → 2SW 20:47 → 2NO 01-13 10:50
PROVIDERS: ADMIT Family Medicine; ATTEND Family Medicine
PROC: 30233N1 Transfusion of Nonautologous Red Blood Cells into Peripheral Vein, Percutaneous Approach (ICD-10-PCS; 2020-01-11)
PROC: 0JH63XZ Insertion of Tunneled Vascular Access Device into Chest Subcutaneous Tissue and Fascia, Percutaneous Approach (ICD-10-PCS; principal; 2020-01-13)
PROC: 0WWG43Z Revision of Infusion Device in Peritoneal Cavity, Percutaneous Endoscopic Approach (ICD-10-PCS; 2020-01-13)
PROC: 0DNW4ZZ Release Peritoneum, Percutaneous Endoscopic Approach (ICD-10-PCS; 2020-01-13)
PROC: 02HV33Z Insertion of Infusion Device into Superior Vena Cava, Percutaneous Approach (ICD-10-PCS; 2020-01-13)
PROC: B5181ZA Fluoroscopy of Superior Vena Cava using Low Osmolar Contrast, Guidance (ICD-10-PCS; 2020-01-13)
DX: T85.611A Breakdown (mechanical) of intraperitoneal dialysis catheter, initial encounter (principal); N18.6 End stage renal disease; I12.0 Hypertensive chronic kidney disease with stage 5 chronic kidney disease or end stage renal disease; A09 Infectious gastroenteritis and colitis, unspecified; E78.5 Hyperlipidemia, unspecified; E87.5 Hyperkalemia; M10.9 Gout, unspecified; D63.1 Anemia in chronic kidney disease; E11.22 Type 2 diabetes mellitus with diabetic chronic kidney disease; Y83.9 Surgical procedure, unspecified as the cause of abnormal reaction of the patient, or of later complication, without mention of misadventure at the time of the procedure; I48.0 Paroxysmal atrial fibrillation; K27.9 Peptic ulcer, site unspecified, unspecified as acute or chronic, without hemorrhage or perforation; Z20.828 Contact with and (suspected) exposure to other viral communicable diseases; K57.90 Diverticulosis of intestine, part unspecified, without perforation or abscess without bleeding; Z79.82 Long term (current) use of aspirin; Z79.51 Long term (current) use of inhaled steroids; Z79.899 Other long term (current) drug therapy; Z88.8 Allergy status to other drugs, medicaments and biological substances; Z95.0 Presence of cardiac pacemaker; Z79.84 Long term (current) use of oral hypoglycemic drugs
CPT/HCPCS: 36415; 36416; 36430; 71045; 74177; 80048; 80053; 81003; 81015; 82274; 82550; 83605; 85025; 86850; 86900; 86901; 87040; 87070; 87086; 87205; 87340; 90935; 90945; 93005; 93010; C1752; G0257; J0360; J0690; J1644; J2270; J2370; J2405; J2704; J2997; J3010; P9016; Q5105; Q9967; S0020; U0002